=== PATIENT | female | born 1965 | race Caucasian/White ===

== ENCOUNTER 2018-01-06 10:45 | Outpatient (CLI) | payer OTHER | END 2018-01-06 10:46 | disposition home or self-care (01) | LOC: BICMAMMO 10:45 | PROVIDERS: ATTEND Internal Medicine | DX: Z12.31 Encounter for screening mammogram for malignant neoplasm of breast (principal); Z80.3 Family history of malignant neoplasm of breast | CPT/HCPCS: 77063; 77067 ==

== ENCOUNTER 2018-10-31 07:55 | Outpatient (CLI) | payer OTHER ==
--- NOTE | 2018-10-31 13:12 | ULT ---
RIGHT UNILATERAL LIMITED BREAST ULTRASOUND: HISTORY: A 53-year-old female who presents with nipple discharge. FINDINGS: Attention is turned to the retroareolar region of the right breast. Asymmetric echogenic glandular tissue. No solid or cystic mass. No evidence for ductal dilatation. IMPRESSION: Unremarkable ultrasound examination of the subareolar region of the right breast. POS: OFF
--- NOTE | 2018-10-31 13:17 | ULT ---
LIMITED LEFT BREAST ULTRASOUND: HISTORY: A 53-year-old female with a history of nipple discharge. FINDINGS: Attention is turned to the subareolar portion of the left breast. There are several ducts noted, whi ch are borderline in size. No solid or cystic mass. No evidence of malignancy. IMPRESSION: 1. Several borderline-sized ducts in the retroareolar region of the left breast, without other signi ficant abnormality. 2. Given the history of nipple discharge, if this nipple discharge persists,or worsens, particularly over a several month time period, I would consider obtaining a follow-up breast MRI of both breasts with and without intravenous contrast for further assessment. The findings were discussed with the patient at the time of the examination. CODE CR POS: OFF
== END 2018-10-31 07:56 | disposition home or self-care (01) ==
LOC: BICMAMMO 07:55
PROVIDERS: ATTEND Internal Medicine
DX: N64.52 Nipple discharge (principal)
CPT/HCPCS: 77066; G0279

== ENCOUNTER 2018-11-18 12:09 | Outpatient (CLI) | payer OTHER ==
--- NOTE | 2018-11-18 15:09 | MRI ---
BILATERAL BREAST MRI WITH AND WITHOUT IV CONTRAST: Date: 11/18/18 HISTORY: Bloody nipple discharge on the left. TECHNIQUE: Multiplanar, multisequence MRI of the breasts performed with and without IV contrast. Review was also performed on an independent 3D workstation. FINDINGS: Correlation is made with the mammograms and ultrasounds of 10/31/18. There is a dilated duct with blood products (high T1 signal) in the left breast without evidence of m ass or abnormal postcontrast enhancement. No mass or abnormal postcontrast enhancement is seen in the right breast. No skin thickening is ident ified. The chest wall is normal. No axillary or internal mammary lymphadenopathy is seen. IMPRESSION: BIRADS Category 2 - benign findings. Return to annual mammographic screening. Surgical consultation f or ductal evaluation is recommended. This study was interpreted in consultation with Dr. Jim Ahmadi, who concurs. POS: [facility]
== END 2018-11-18 12:10 | disposition home or self-care (01) ==
LOC: BICMRI 12:09
PROVIDERS: ATTEND Surgery
DX: N64.52 Nipple discharge (principal)
CPT/HCPCS: C8908

== ENCOUNTER 2019-11-04 16:07 | Outpatient (CLI) | payer OTHER ==
--- NOTE | 2019-11-04 17:06 | MMO ---
Bilateral MAMMO Bilat Screen [facility]. CLINICAL HISTORY: Patient is 54 years old and is seen for screening. The patient has no personal history of cancer. VIEWS: The views performed were: bilateral craniocaudal with tomosynthesis and bilateral mediolateral oblique with tomosynthesis. FILMS COMPARED: The present examination has been compared to prior imaging studies performed at [facility] on 01/06/2018 and 10/31/2018, and at [facility] on 05/25/2015 and 12/08/2015. This study has been interpreted with the assistance of computer-aided detection. MAMMOGRAM FINDINGS: The breasts are heterogeneously dense, which could obscure a lesion on mammography. There are stable benign appearing calcifications seen in both breasts. There are no suspicious masses, suspicious calcifications, or new areas of architectural distortion. IMPRESSION: THERE IS NO MAMMOGRAPHIC EVIDENCE OF MALIGNANCY. A ROUTINE FOLLOW-UP MAMMOGRAM IN 1 YEAR IS RECOMMENDED. THE RESULTS OF THIS EXAM WERE SENT TO THE PATIENT. ACR BI-RADS Category 2 - Benign finding MAMMOGRAPHY NOTE: 1. A negative mammogram report should not delay a biopsy if a dominant of clinically suspicious mass is present. 2. Approximately 10% to 15% of breast cancers are not detected by mammography. 3. Adenosis and dense breasts may obscure an underlying neoplasm. Reported by: NAM TEJEDA MD Electonically Signed: [id number]
== END 2019-11-04 16:08 | disposition home or self-care (01) ==
LOC: BICMAMMO 16:07
PROVIDERS: ATTEND Internal Medicine
DX: Z12.31 Encounter for screening mammogram for malignant neoplasm of breast (principal)
CPT/HCPCS: 77063; 77067

== ENCOUNTER 2020-11-07 14:38 | Outpatient (CLI) | payer OTHER ==
--- NOTE | 2020-11-07 16:25 | MMO ---
Bilateral MAMMO Bilat Screen [facility]. CLINICAL HISTORY: Patient is 55 years old and is seen for screening. The patient has no family history of breast cancer. The patient has no personal history of cancer. VIEWS: The views performed were: bilateral craniocaudal with tomosynthesis and bilateral mediolateral oblique with tomosynthesis. FILMS COMPARED: The present examination has been compared to prior imaging studies performed at [facility] on 01/06/2018, 10/31/2018 and 11/04/2019, and at [facility] on 12/08/2015. This study has been interpreted with the assistance of computer-aided detection. MAMMOGRAM FINDINGS: The breasts are heterogeneously dense, which could obscure a lesion on mammography. Benign calcifications are noted bilaterally. There are no suspicious masses, suspicious calcifications, or new areas of architectural distortion. IMPRESSION: THERE IS NO MAMMOGRAPHIC EVIDENCE OF MALIGNANCY. A ROUTINE FOLLOW-UP MAMMOGRAM IN 1 YEAR IS RECOMMENDED. THE RESULTS OF THIS EXAM WERE SENT TO THE PATIENT. ACR BI-RADS Category 2 - Benign finding MAMMOGRAPHY NOTE: 1. A negative mammogram report should not delay a biopsy if a dominant of clinically suspicious mass is present. 2. Approximately 10% to 15% of breast cancers are not detected by mammography. 3. Adenosis and dense breasts may obscure an underlying neoplasm. Reported by: MOJGAN MAC MD Electonically Signed: [id number]
== END 2020-11-07 14:39 | disposition home or self-care (01) ==
LOC: BICMAMMO 14:38
PROVIDERS: ATTEND Internal Medicine
DX: Z12.31 Encounter for screening mammogram for malignant neoplasm of breast (principal)
CPT/HCPCS: 77063; 77067

== ENCOUNTER 2021-11-21 07:55 | Outpatient (CLI) | payer OTHER | END 2021-11-21 07:56 | disposition home or self-care (01) | LOC: BICMAMMO 07:55 | PROVIDERS: ATTEND Internal Medicine | DX: Z12.31 Encounter for screening mammogram for malignant neoplasm of breast (principal) | CPT/HCPCS: 77063; 77067 ==